=== PATIENT | female | born 1940 | race Caucasian/White ===

== ENCOUNTER → 2018-08-27 | Outpatient (CLI) | payer OTHER ==
--- NOTE | 2018-08-27 17:16 | KCIC ---
CHEST PA LATERAL History: Cough since May. No comparison. Heart size not enlarged. No pneumothorax. No pleural effusion. There is evidence of emphysematous change. There are coarse interstitial markings in both lungs throughout. No dense lobar consolidation. Regional skeleton appears grossly intact IMPRESSION: Interstitial opacities throughout both lungs, may be due to chronic fibrosis. Difficult difficult to exclude acute infiltrate or edema without prior images but probably less likely. Electronically signed by: Onesimo Desai MD (08/27/2018 5:13 PM) [facility]
== END | disposition home or self-care (01) ==
LOC: KCIC 09:23
PROVIDERS: ATTEND Family Medicine
DX: J43.9 Emphysema, unspecified (principal); J98.4 Other disorders of lung
CPT/HCPCS: 71046

== ENCOUNTER → 2018-10-05 | Outpatient (CLI) | payer OTHER ==
--- NOTE | 2018-10-05 11:02 | CARD ---
MR#: [id number] Date of Study: 10/05/2018 Ordering Physician: BRUNA KUMAR, Referring Physician: BRUNA KUMAR, Tech: Miri Rucker [facility] APPROVED REPORT EXAM: Two-dimensional and M-mode echocardiogram with Doppler and color Doppler. Other Information Quality : AverageHR: 76bpm Rhythm : NSR INDICATION Mitral Valve Disease 2D DIMENSIONS Left Atrium(2D)3.3 (1.6-4.0cm)IVSd1.4 (0.7-1.1cm) Aortic Root(2D)2.6 (2.0-3.7cm)LVDd3.1 (3.9-5.9cm) LVOT Diameter1.9 (1.8-2.4cm)PWd0.9 (0.7-1.1cm) LVDs2.0 (2.5-4.0cm)FS (%) 35.0 % SV24.3 mlLVEF(%)65.9 (>50%) M-Mode DIMENSIONS Left Atrium(MM)3.90 (2.5-4.0cm)Aortic Root3.39 (2.2-3.7cm) Aortic Valve AoV Peak Zack.150.4cm/sAoV VTI30.1cm AO Peak GR.9.1mmHgLVOT Peak Zack.117.5cm/s AO Mean GR.4mmHgAVA (VMAX)2.11cm2 YOBANI (VTI)2.20cm2 Mitral Valve MV E Nasovzgd110.9cm/sMV E Peak Gr.14mmHg MV DECEL [id number] A Jbdbmalm814.9cm/s MV E Mean Gr.5mmHgE/A Ratio0.7 Pulmonary Valve PV Peak Atygobzs80.2cm/s Tricuspid Valve TR P. [id number]/sRAP [id number] TR Peak Gr.32oyJgIBIW65avIj LEFT VENTRICLE The left ventricle cavity is small. Proximal septal thickening is noted. The left ventricular systoli c function is normal and the ejection fraction is within normal range. The Ejection Fraction is 65-70 %. There is normal LV segmental wall motion. Transmitral Doppler flow pattern is Grade I-abnormal rel axation pattern. RIGHT VENTRICLE The right ventricle is normal size. There is normal right ventricular wall thickness. The right ventr icular systolic function is normal. ATRIA The left atrium size is normal. The right atrium size is normal. The interatrial septum is intact wit h no evidence for an atrial septal defect or patent foramen ovale as noted on 2-D or Doppler imaging. AORTIC VALVE The aortic valve is normal in structure and function. The aortic valve is trileaflet. Doppler and Col or Flow revealed no significant aortic regurgitation. There is no significant aortic valvular stenosi s. There is no aortic valvular vegetation. MITRAL VALVE The mitral valve is normal in structure and function. There is no evidence of mitral valve prolapse. There is no mitral valve stenosis. There is no significant mitral valve stenosis. Calculated mitral v alve area is 1.9 cm2 with maximum pressure gradient of 14 mmHg and mean pressure gradient of 5 mmHg. Doppler and Color-flow revealed trace mitral regurgitation. TRICUSPID VALVE The tricuspid valve is normal in structure and function. Doppler and Color Flow revealed trace tricus pid regurgitation. The PA pressure was estimated at 32 mmHg. There is no tricuspid valve prolapse or vegetation. There is no tricuspid valve stenosis. PULMONIC VALVE The pulmonic valve is not well visualized. GREAT VESSELS The aortic root is normal in size. The ascending aorta is normal in size. The IVC is normal in size a nd collapses >50% with inspiration. PERICARDIAL EFFUSION There is no evidence of significant pericardial effusion. Critical Notification Critical Value: No <Conclusion> The left ventricular systolic function is normal and the ejection fraction is within normal range. Th e Ejection Fraction is 65-70%. There is normal LV segmental wall motion. There is no mitral valve stenosis. There is no significant mitral valve stenosis. Calculated mitral v alve area is 1.9 cm2 with maximum pressure gradient of 14 mmHg and mean pressure gradient of 5 mmHg. Signed by : Reji Castellanos, Electronically Approved : 10/05/2018 11:01:40
== END | disposition home or self-care (01) ==
LOC: ECHO 09:35
PROVIDERS: ATTEND Internal Medicine Cardiovascular Disease
DX: I05.0 Rheumatic mitral stenosis (principal)
CPT/HCPCS: 93306

== ENCOUNTER → 2021-06-15 | Outpatient (CLI) | payer MEDICARE ==
--- NOTE | 2021-06-15 14:22 | CARD ---
MR#: [id number] Date of Study: 06/15/2021 Ordering Physician: DANIAL KAPLAN, Referring Physician: DANIAL KAPLAN, Tech: Bill Bhakta [facility] APPROVED REPORT EXAM: Two-dimensional and M-mode echocardiogram with Doppler and color Doppler. Other Information Quality : AverageHR: 71bpm Rhythm : NSR INDICATION Dyspnea RISK FACTORS Hypertension 2D DIMENSIONS Left Atrium(2D)3.7 (1.6-4.0cm)IVSd1.1 (0.7-1.1cm) Aortic Root(2D)2.7 (2.0-3.7cm)LVDd4.3 (3.9-5.9cm) LVOT Diameter1.9 (1.8-2.4cm)PWd1.1 (0.7-1.1cm) LVDs2.7 (2.5-4.0cm)FS (%) 37.5 % SV55.2 ml Aortic Valve AoV Peak Zack.136.2cm/sAoV VTI32.1cm AO Peak GR.7.4mmHgLVOT Peak Zack.123.9cm/s AO Mean GR.4mmHgAVA (VMAX)2.54cm2 AI P 1/2 [id number] Mitral Valve MV E Jiahmfvr627.8cm/sMV E Peak Gr.16mmHg MV DECEL [id number] A Ukvbrdgl784.9cm/s MV E Mean Gr.4mmHgE/A Ratio0.8 Pulmonary Valve PV Peak Jvtqucar99.5cm/s Tricuspid Valve TR P. Dxfvbfbc093qu/sTR Peak Gr.30mmHg Pulmonary Vein S1 Dzfuomzn59.3cm/sD2 Dfccaxcc38.9cm/s LEFT VENTRICLE The left ventricle is normal size. There is borderline to mild concentric left ventricular hypertroph y. The left ventricular systolic function is normal and the ejection fraction is within normal range. LV ejection fraction of 55 to 60%. There is normal LV segmental wall motion. No left ventricle throm bus noted on this study. There is no ventricular septal defect visualized. There is no left ventricul ar aneurysm. There is no mass noted in the left ventricle. RIGHT VENTRICLE The right ventricle is normal size. There is normal right ventricular wall thickness. The right ventr icular systolic function is normal. ATRIA The left atrium is mild to moderately dilated. The right atrium size is normal. The interatrial septu m is intact with no evidence for an atrial septal defect or patent foramen ovale as noted on 2-D or D oppler imaging. AORTIC VALVE The aortic valve is normal in structure and function. The aortic valve is trileaflet. Doppler and Col or Flow revealed trace aortic regurgitation. There is no significant aortic valvular stenosis. There is no aortic valvular vegetation. MITRAL VALVE The mitral valve is thickened but opens well. There is no evidence of mitral valve prolapse. There is no significant mitral valve stenosis. Doppler and Color Flow revealed trace mitral valve regurgitati on. TRICUSPID VALVE The tricuspid valve is normal in structure and function. Doppler and Color Flow revealed trace to mil d tricuspid regurgitation. The PA pressure was estimated at 33 mmHg. There is no tricuspid valve prol apse or vegetation. There is no tricuspid valve stenosis. PULMONIC VALVE The pulmonary valve is normal in structure and function. Doppler and Color Flow revealed no pulmonic valvular regurgitation. There is no pulmonic valvular stenosis. GREAT VESSELS The aortic root is normal in size. The ascending aorta is normal in size. The pulmonary artery is nor mal. The IVC is normal in size and collapses >50% with inspiration. PERICARDIAL EFFUSION There is no pleural effusion. There is no evidence of significant pericardial effusion. Critical Notification Critical Value: No <Conclusion> The left ventricle is normal size. The left ventricular systolic function is normal and the ejection fraction is within normal range. LV ejection fraction of 55 to 60%. There is borderline to mild concentric left ventricular hypertrophy. Doppler and Color Flow revealed trace aortic regurgitation. There is no significant aortic valvular stenosis. Doppler and Color Flow revealed trace mitral valve regurgitation. Doppler and Color Flow revealed trace to mild tricuspid regurgitation. The PA pressure was estimated at 33 mmHg. Signed by : Danial Kaplan MD Electronically Approved : 06/15/2021 14:21:25
== END ==
LOC: ECHO 08:42
PROVIDERS: ATTEND Internal Medicine Cardiovascular Disease
DX: I36.1 Nonrheumatic tricuspid (valve) insufficiency (principal); R06.09 Other forms of dyspnea; I11.9 Hypertensive heart disease without heart failure
CPT/HCPCS: 93306; C8929